=== PATIENT | female | born 1985 | race African-American/Black ===

== ENCOUNTER 2016-07-10 07:12 | Emergency (ER) | payer OTHER ==
[~2016-07-10] VITALS: Ht 165.1 cm; Wt 69.4 kg
--- NOTE | 2016-07-10 08:06 | ED UPPER/LOWER EXTREMITY COMPL ---
History of Present Illness General Chief Complaint: Lower Extremity Injury Stated Complaint: THROBBING IN R CALF Source: patient, family, old records Exam Limitations: no limitations Vital Signs & Intake/Output Vital Signs & Intake/Output Vital Signs Date Time Temp Pulse Resp B/P Pulse O2 O2 Flow FiO2 Ox Delivery Rate 07/10 0840 98.0 72 20 111/60 98 Room Air 07/10 0718 97.7 71 20 120/74 98 Room Air Allergies Coded Allergies: No Known Allergies (07/10/16) Reconcile Medications Baclofen 10 MG TABLET 1 TAB PO TIDPRN PRN muscle spasm/strain Ibuprofen 600 MG TABLET 1 TAB PO Q6PRN PRN pain with food Triage Note: C/O THROBBING IN RIGHT CALF SINCE LAST SATURDAY. CAME IN LAST NIGHT FOR SAME BUT U/S WASN'T HERE AND TOLD TO COME BACK TODAY. PT STATES SHE TRAVELS ALL THE TIME, LAST FLIGHT LAST MONTH. STATES SHE DROVE TO [place] LAST Triage Nurses Notes Reviewed? yes Onset: Last week Duration: day(s):, constant, continues in ED Timing: recent history Severity: mild Pain/Injury Location: Right: Leg. Method of Injury: unknown No Modifying Factors: none Associated Symptoms: GCS 15 since, stiffness : No Patient currently breastfeeds: No HPI: 1 week prior to admission patient complains of right calf pain described as achy mild to moderate in severity worse with ambulation pressure occurring intermittently. She reports driving to [facility] over the weekend with continued pain. There's been no fever chills nausea vomiting diarrhea abdominal pain chest pain shortness breath headache dysuria rash bleeding. There is a family history of blood clots in the mother. Past History Travel History Traveled to [place] past 21 day No Medical History Any Pertinent Medical History? see below for history Respiratory: asthma Surgical History Surgical History: non-contributory Psychosocial History What is your primary language [place]al[place] Tobacco Use: Never used ETOH Use: occasional use Illicit Drug Use: denies illicit drug use Family History Hx Contributory? No Review of Systems Review of Systems Constitutional: Reports: no symptoms. EENTM: Reports: no symptoms. Respiratory: Reports: no symptoms. Cardiovascular: Reports: no symptoms. Gastrointestinal/Abdominal: Reports: no symptoms. Genitourinary: Reports: no symptoms. Musculoskeletal: Reports: see HPI, muscle pain. Skin: Reports: no symptoms. Neurological/Psychological: Reports: no symptoms. Hematologic/Endocrine: Reports: no symptoms. Immunological: Reports: no symptoms. All Other Systems: Reviewed and Negative Physical Exam Physical Exam General Appearance: well developed/nourished, alert, awake, anxious, mild distress Head: atraumatic, normal appearance Eyes: Bilateral: normal appearance, PERRL, EOMI. Ears, Nose, Throat: normal pharynx, normal ENT inspection, hearing grossly normal, moist mucus membranes Neck: normal inspection, supple Cardiovascular/Respiratory: regular rate/rhythm Peripheral Pulses: 4+ carotid (R), 4+ carotid (L) Back: normal inspection, normal range of motion, no vertebral tenderness Shoulder Left: normal range of motion, normal inspection Shoulder Right: normal range of motion, normal inspection Elbow Left: normal range of motion, normal inspection Elbow Right: normal range of motion, normal inspection Hand Left: normal inspection, normal range of motion Hand Right: normal inspection, normal range of motion Upper Extremity Reflexes: 2+: bicep (R), bicep (L). Leg Left: normal range of motion, normal inspection Leg Right: normal range of motion, normal inspection Hip Left: normal range of motion, normal inspection Hip Right: normal range of motion, normal inspection Knee Left: normal range of motion, normal inspection Knee Right: normal range of motion, normal inspection Foot Left: normal inspection, normal range of motion Foot Right: normal inspection, normal range of motion Lower Extremity Reflexes: 2+: knee (R), knee (L). Neurologic/Tendon: normal sensation, normal motor functions, normal tendon functions Skin: intact, normal color, warm/dry Lymphatic: no anterior cervical gabby Progress Differential Diagnosis: compartment syndrome, DVT, sprain Plan of Care: Orders Procedure Date/time Status US-DUPLEX VENOUS EXTREM [facility] 07/10 7301 Active Diagnostic Imaging: Viewed by Me: Ultrasound. Discussed w/RAD: Ultrasound. Radiology Impression: no acute abnormality Departure Departure Time of Disposition: 836 Disposition: HOME OR SELF CARE Condition: Stable Clinical Impression Primary Impression: Pain of right calf Referrals: PATIENT HAS NO PRIMARY CARE DR (PCP/Family) Departure Forms: Customer Survey General Discharge Information Prescriptions: Current Visit Scripts Ibuprofen 1 TAB PO Q6PRN PRN pain #50 TAB with food Baclofen 1 TAB PO TIDPRN PRN muscle spasm/strain #30 TAB
--- NOTE | 2016-07-10 08:32 | ULTRASOUND REPORT ---
EXAMINATION: US DUPLEX EXTREMITY VEINS, RIGHT CLINICAL INFORMATION: Right lower extremity pain. Right calf swelling. COMPARISON: None TECHNIQUE: Ultrasound of the right lower extremity was performed as per protocol to evaluate for presence of deep venous thrombosis. FINDINGS: The right common femoral vein, right femoral vein, right popliteal vein, and right calf veins demonstrate normal compression and normal vascular flow. There is no evidence of deep venous thrombosis within the right lower extremity. IMPRESSION: No evidence of right lower extremity deep venous thrombosis.
[2016-07-10] MEDS ORDERED: IBUPROFEN600 M1 PO (08:38)
[2016-07-10] MEDS ORDERED: BACLOFEN10 M1 PO (08:38)
[2016-07-10 08:40] VITALS: BP 111/60
== END 2016-07-10 08:49 ==
LOC: ERH 07:12
DX: M79.661 Pain in right lower leg (principal)